=== PATIENT | male | born 1965 | race Two or more races ===

== ENCOUNTER 2023-09-02 16:00 | Emergency (ER) | payer SELFPAY ==
[~2023-09-02] VITALS: Ht 182.9 cm; Wt 168.0 kg
[2023-09-02] MEDS ORDERED: ACETAMINOPHEN 500 MG TAB PO ONE (16:45)
[2023-09-02 17:05] VITALS: BP 127/82; PULSE 108; RESP 22; O2SAT 94
[2023-09-02 17:19] VITALS: TEMP 98.3
== END 2023-09-02 17:22 | disposition home or self-care (01) ==
LOC: ER 16:00 → EDBD 16:00 → ER 17:22
DX: S39.012A Strain of muscle, fascia and tendon of lower back, initial encounter (principal); I10 Essential (primary) hypertension; J44.9 Chronic obstructive pulmonary disease, unspecified; V49.59XA Passenger injured in collision with other motor vehicles in traffic accident, initial encounter; Y93.89 Activity, other specified; Y92.89 Other specified places as the place of occurrence of the external cause; Y99.8 Other external cause status
CPT/HCPCS: 72100; 93005